=== PATIENT | female | born 1950 | race Caucasian/White ===

== ENCOUNTER 2024-05-09 07:34 | Day surgery (SDC) | payer OTHER ==
[2024-05-06 15:31] LABS: Absolute Basophils 0.1 K/uL (0-0.5); Absolute Eosinophils 0.2 K/uL (0-0.5); Absolute Lymphocytes (CBC) 1.5 K/uL (0.7-4.9); Absolute Monocytes 0.8 K/uL (0.1-1.3); Absolute Neutrophil 7.9 K/uL (1.8-8.0); Basophils % 0.6 % (0-1.3); Eosinophils % 1.5 % (0-4.4); Hematocrit 42.9 % (36.0-45.0); Hemoglobin 14.4 g/dL (12.0-15.0); Lymphocytes % 14.6 % (15.3-44.8); MCH 30.3 pg (27.0-35.0); MCHC 33.5 g/dL (32.0-36.0); MCV 90.5 fL (80-100); MPV 8.4 fL (7.6-11.3); Monocytes % 7.4 % (3.3-12.3); Neutrophils % 75.9 % (41.7-73.7); Nucleated Red Blood Cells % 0.1 % (0-0); Platelets 327 thou/uL (152-406); RBC Red Blood Cell Count 4.74 M/uL (3.86-4.86); Red Cell Distribution Width 14.4 % (12.1-15.2)
[2024-05-09] MEDS: Ringers Lactate 1,000 ML IV ONE (08:00)
[2024-05-09] MEDS ORDERED: propofoL 200 MG/20 ML VIAL IV ONE (08:23)
[2024-05-09] MEDS ORDERED: LIDOCAINE 1% MPF 5 ML VIAL ONE (08:23)
[2024-05-09 12:06] VITALS: TEMP 97.3
[2024-05-09 12:07] VITALS: BP 165/88; O2SAT 99
--- NOTE | 2024-05-09 17:07 | EKG ---
Test Date: 2024-05-06 Test Time: 15:02:03 Health Care Marketing Specialist: DOMINGA MEASUREMENT RESULTS: Intervals: Rate: 63 KS: 198 QRSD: 80 QT: 408 QTc: 417 [place]: P: 35 KS: 198 QRS: -41 T: 33 INTERPRETIVE STATEMENTS: Sinus rhythm with premature supraventricular complexes with occasional premature ventricular complexes Left axis deviation Anteroseptal infarct, age undetermined Abnormal ECG Compared to ECG 03/24/1996 11:02:00 Atrial premature complex(es) now present Ventricular premature complex(es) now present Left-axis deviation now present Myocardial infarct finding now present T-wave abnormality no longer present Electronically Signed On 05-09-24 16:59:35 CDT by Demarcus Romero
== END 2024-05-09 10:40 | disposition home or self-care (01) ==
LOC: OR 07:34
PROVIDERS: ATTEND Surgery
PROC: 0DBM8ZX Excision of Descending Colon, Via Natural or Artificial Opening Endoscopic, Diagnostic (ICD-10-PCS; principal; 2024-05-09 09:10)
DX: Z12.11 Encounter for screening for malignant neoplasm of colon (principal); Z86.010 Personal history of colon polyps; I10 Essential (primary) hypertension; E78.00 Pure hypercholesterolemia, unspecified; K57.30 Diverticulosis of large intestine without perforation or abscess without bleeding; K64.4 Residual hemorrhoidal skin tags; K64.8 Other hemorrhoids; D12.4 Benign neoplasm of descending colon
CPT/HCPCS: 93005; 85025; 80048; 36415; 88305; 45384; J2704; J2001; J7120

== ENCOUNTER 2024-05-19 21:50 | Emergency (ER) | payer OTHER ==
[2024-05-19] MEDS ORDERED: cloNIDine HCL 0.1 MG TAB ONE (22:27)
--- NOTE | 2024-05-19 22:46 | RAD REPORT ---
EXAM DESCRIPTION: RAD - Chest Single View - 05/19/2024 10:21 pm CLINICAL HISTORY: shortness of breath Chest pain. COMPARISON: No comparisons FINDINGS: Portable technique limits examination quality. The lungs are mildly emphysematous but grossly clear. The heart is mildly enlarged in size. No displa tyson fractures. IMPRESSION: No acute intrathoracic process suspected.
[2024-05-19 23:13] LABS: PT Prothrombin Time 11.2 SECONDS (9.4-12.5)
[2024-05-19 23:19] LABS: Absolute Eosinophils 0.2 K/uL (0-0.5); Absolute Lymphocytes (CBC) 1.1 K/uL (0.7-4.9); Basophils % 0.2 % (0-1.3); Eosinophils % 1.3 % (0-4.4); Hematocrit 40.2 % (36.0-45.0); Hemoglobin 13.1 g/dL (12.0-15.0); Lymphocytes % 9.9 % (15.3-44.8); MCH 30.2 pg (27.0-35.0); MCHC 32.7 g/dL (32.0-36.0); MCV 92.3 fL (80-100); Monocytes % 8.6 % (3.3-12.3); Platelets 313 thou/uL (152-406); RBC Red Blood Cell Count 4.36 M/uL (3.86-4.86); Red Cell Distribution Width 14.4 % (12.1-15.2)
[2024-05-19] MEDS ORDERED: dexAMETHasone 10 MG/ML VIAL ONE (23:45)
[2024-05-19] MEDS ORDERED: IPRATROPIUM BROM 0.5MG/2.5ML ONE (23:46)
[2024-05-19] MEDS ORDERED: ALBUTEROL 2.5 MG/3 ML NEB SOL ONE (23:46)
[2024-05-20 00:11] LABS: Albumin 3.5 g/dL (3.4-5.0); Albumin/Globulin Ratio 1.1 (1.1-1.8); Anion Gap 10.4 mEq/L (5.0-15.0); Bilirubin Direct 0.2 mg/dL (0-0.2); Bilirubin Indirect, Calculated 0.3 mg/dL (0.2-0.8); Bilirubin Total 0.5 mg/dL (0.2-1.0); Globulin 3.3 g/dL (2.3-3.5); Magnesium 1.9 mg/dL (1.6-2.4); Potassium 3.4 mEq/L (3.5-5.1); Protein, Total 6.8 g/dL (6.4-8.2); Troponin High Sensitivity 14.6 pg/mL (<58.9)
--- NOTE | 2024-05-20 00:30 | ER ---
Nurse's Notes [facility] Name: Analia Pennington Age: 73 yrs Sex: Female : 1950 Arrival Date: 05/19/2024 Time: 21:50 Bed 18 Private MD: Diagnosis: Hypertensive heart disease without heart failure;Postnasal drip Presentation: 05/19 22:00 Chief complaint: Patient states: "Ever since this morning, I started having trouble mb9 clearing my throat and feeling like its hoarse. I don't have SOB/CP.". Coronavirus screen: Vaccine status: Patient reports receiving the 2nd dose of the covid vaccine. Ebola Screen: No symptoms or risks identified at this time. Initial Sepsis Screen: Does the patient meet any 2 criteria? No. Patient's initial sepsis screen is negative. Does the patient have a suspected source of infection? No. Patient's initial sepsis screen is negative. Risk Assessment: Do you want to hurt yourself or someone else? Patient reports no desire to harm self or others. Onset of symptoms was May 19, 2024. 22:00 Acuity: MATY 2 mb9 22:00 Method Of Arrival: Ambulatory mb9 Triage Assessment: 22:03 General: Appears in no apparent distress. Behavior is calm, cooperative. Pain: Denies mb9 pain. EENT: Throat is clear. Neuro: Level of Consciousness is awake, alert, obeys commands, Oriented to person, place, time, situation, Appropriate for age. Cardiovascular: Denies chest pain, Patient's skin is warm and dry. Respiratory: Airway is patent Respiratory effort is even, unlabored, Respiratory pattern is regular, symmetrical. Respiratory:. Derm: Skin is pink, warm \\T\\ dry. Historical: - Allergies: 22:02 No Known Allergies; mb9 - Home Meds: 22:02 amlodipine oral [Active]; losartan oral [Active]; mb9 - PMHx: 22:02 Hypertensive disorder; mb9 - PSHx: 22:02 None; mb9 - Immunization history:: Adult Immunizations up to date. - Infectious Disease History:: Denies. - Social history:: Smoking status: Patient denies any tobacco usage or history of. Screenin:04 [facility] ED Fall Risk Assessment (Adult) History of falling in the last 3 months, mb9 including since admission No falls in past 3 months (0 pts) Confusion or Disorientation No (0 pts) Intoxicated or Sedated No (0 pts) Impaired Gait No (0 pts) Mobility Assist Device Used No (0 pt) Altered Elimination No (0 pt) Score/Fall Risk Level 0 - 2 = Low Risk Oriented to surroundings, Maintained a safe environment, Educated pt \\T\\ family on fall prevention, incl call for assistance when getting out of bed. Abuse screen: Denies threats or abuse. Nutritional screening: No deficits noted. Tuberculosis screening: No symptoms or risk factors identified. Assessment: 22:36 General: Appears in no apparent distress. Behavior is cooperative, anxious. Pain: tm6 Denies pain. Neuro: Level of Consciousness is awake, alert, obeys commands, Oriented to person, place, time, situation. Cardiovascular: Capillary refill < 3 seconds Patient's skin is warm and dry. Rhythm is regular. Respiratory: Airway is patent Respiratory effort is even, unlabored, Respiratory pattern is regular, symmetrical. GI: No signs and/or symptoms were reported involving the gastrointestinal system. Abdomen is round non-distended. : No signs and/or symptoms were reported regarding the genitourinary system. EENT: Reports feeling like something is stuck in throat. Derm: No signs and/or symptoms reported regarding the dermatologic system. Musculoskeletal: No signs and/or symptoms reported regarding the musculoskeletal system. 23:19 Reassessment: Patient appears in no apparent distress at this time. Patient and/or tm6 family updated on plan of care and expected duration. Pain level reassessed. Patient is alert, oriented x 3, equal unlabored respirations, skin warm/dry/pink. 05/20 00:14 Reassessment: Patient appears in no apparent distress at this time. Patient and/or tm6 family updated on plan of care and expected duration. Pain level reassessed. Patient is alert, oriented x 3, equal unlabored respirations, skin warm/dry/pink. Vital Signs: 05/19 22:00 BP 219 / 91; Pulse 88; Resp 18; Temp 98.6; Pulse Ox 100% on R/A; Weight 81.65 kg; mb9 Height 5 ft. 1 in. ; Pain 0/10; 22:36 BP 187 / 101; Pulse 62; Pulse Ox 96% on R/A; Pain 0/10; tm6 23:19 BP 178 / 86; Pulse 60; Pulse Ox 97% on R/A; tm6 16 00:14 BP 165 / 80; Pulse 56; Pulse Ox 95% on R/A; Pain 0/10; tm6 00:42 BP 165 / 80; Pulse 55; Resp 17; Temp 98.7; Pulse Ox 94% on R/A; Pain 0/10; tm6 05/19 22:00 Body Mass Index 34.01 (81.65 kg, 154.94 cm) mb9 05/19 22:00 Pain Scale: Adult mb9 22:36 Pain Scale: Adult tm6 05/20 00:14 Pain Scale: Adult tm6 00:42 Pain Scale: Adult tm6 ED Course: 05/19 21:54 Patient arrived in ED. ld1 21:56 Jeremy Reilly PA is PHCP. cp 21:56 Hayden Haines MD is Attending Physician. cp 22:00 Arm band placed on. mb9 22:02 Triage completed. mb9 22:15 EKG done, by ED staff, reviewed by Jeremy WALDRON. tm6 22:23 XRAY Chest (1 view) In Process Unspecified. EDMS 22:25 Tong Orta, RN is Primary Nurse. tm6 22:36 Patient has correct armband on for positive identification. Bed in low position. Call tm6 light in reach. Side rails up X 1. Provided Education on: use of call tracy. Client placed on continuous cardiac and pulse oximetry monitoring. NIBP monitoring applied. complaint investigations officer on. Pulse ox on. NIBP on. Door closed. Noise minimized. 22:55 Inserted saline lock: 20 gauge forearm, using aseptic technique. Blood collected. sa1 Flushed with 10 mL NS. 23:54 Strep Sent. tm6 05/20 00:28 Kartik Belle MD is Referral Physician. cp 00:42 No provider procedures requiring assistance completed. IV discontinued, intact, tm6 bleeding controlled, No redness/swelling at site. Pressure dressing applied. Administered Medications: 05/19 22:16 CANCELLED (Physician Discretion): nitroglycerin0.4 mg Sublingual once cp 22:38 Drug: cloNIDine PO 0.2 mg PO once Route: PO; tm6 23:04 Follow up: Response: No adverse reaction tm6 23:38 CANCELLED (Physician Discretion): [id number] mg IVP once cp 23:54 Drug: Decadron - Dexamethasone IVP 10 mg IVP once Route: IVP; Site: right antecubital; tm6 05/20 00:07 Follow up: Response: No adverse reaction tm6 05/19 23:54 Drug: Albuterol Inhalation 2.5 mg Inhalation once Route: Inhalation; tm6 05/20 00:07 Follow up: Response: No adverse reaction tm6 05/19 23:54 Drug: Ipratropium Inhalation Aerosol 0.5 mg Inhalation once Route: Inhalation; tm6 05/20 00:07 Follow up: Response: No adverse reaction tm6 00:42 Drug: Amoxicillin-Clavulanate PO 875 mg PO once Route: PO; tm6 00:43 Follow up: Response: No adverse reaction tm6 Medication: 05/19 22:04 VIS not applicable for this client. mb9 Outcome: 05/20 00:30 Discharge ordered by MD. cp 00:42 Discharged to home ambulatory, with friend, tm6 00:42 Condition: stable 00:42 Discharge instructions given to patient, friend, Instructed on discharge instructions, follow up and referral plans. medication usage, Demonstrated understanding of instructions, follow-up care, medications, Prescriptions given X 3, 00:43 Patient left the ED. tm6 Signatures: Dispatcher [employer] EDMS Jeremy Reilly PA PA cp Sims, Lauren RN RN ld1 Iris Daniel RN RN mb9 Tong Orta RN RN tm6 Sultan German [facility]
--- NOTE | 2024-05-20 00:31 | EDPHYS ---
Physician Documentation [facility] Name: Analia Pennington Age: 73 yrs Sex: Female : 1950 Arrival Date: 05/19/2024 Time: 21:50 Bed 18 Private MD: ED Physician Hayden Haines HPI: 05/19 22:10 This 73 yrs old Female presents to ER via Ambulatory with complaints of Difficulty cp Swallowing, Shortness Of Breath. 22:10 The patient presents with dysphagia, difficulty "clearing throat". The patient cp describes throat pain as denies pain. Onset: The symptoms/episode began/occurred this morning. Severity of symptoms: in the emergency department the symptoms are unchanged, despite home interventions. Historical: - Allergies: 22:02 No Known Allergies; mb9 - Home Meds: 22:02 amlodipine oral [Active]; losartan oral [Active]; mb9 - PMHx: 22:02 Hypertensive disorder; mb9 - PSHx: 22:02 None; mb9 - Immunization history:: Adult Immunizations up to date. - Infectious Disease History:: Denies. - Social history:: Smoking status: Patient denies any tobacco usage or history of. ROS: 22:15 Constitutional: Negative for body aches, chills, fever, poor PO intake, cp 22:15 ENT: Positive for difficulty swallowing, Negative for drainage from ear(s), ear pain, cp sore throat, difficulty handling secretions, 22:15 Cardiovascular: Negative for chest pain, palpitations, 22:15 Respiratory: Positive for shortness of breath, Negative for cough, wheezing, 22:15 Abdomen/GI: Negative for abdominal pain, vomiting, diarrhea, constipation, 22:15 Back: Negative for pain at rest, pain with movement, cp 22:15 Neuro: Negative for altered mental status, dizziness, headache, syncope, weakness, cp 22:15 All other systems are negative, Exam: 22:18 ECG was reviewed by the Attending Physician. cp 22:20 Constitutional: The patient appears in no acute distress, alert, awake, cp non-diaphoretic, non-toxic, well developed, well nourished, 22:20 Head/Face: Normocephalic, atraumatic. cp 22:20 Eyes: Periorbital structures: appear normal, Conjunctiva: normal, no exudate, no injection, Sclera: no appreciated abnormality, Lids and lashes: appear normal, bilaterally, 22:20 ENT: External ear(s): are unremarkable, Nose: is normal, Mouth: Lips: moist, Oral mucosa: pink and intact, moist, Posterior pharynx: Airway: no evidence of obstruction, patent, Tonsils: no enlargement, no exudate, swelling, is not appreciated, erythema, that is mild, exudate, is not appreciated, 22:20 Neck: ROM/movement: is normal, is supple, no meningismus, no nuchal rigidity, 22:20 Chest/axilla: Inspection: normal, 22:20 Cardiovascular: Rate: normal, Rhythm: regular, Edema: is not appreciated, JVD: is not appreciated, 22:20 Respiratory: the patient does not display signs of respiratory distress, Respirations: normal, no use of accessory muscles, no retractions, labored breathing, is not present, Breath sounds: are clear throughout, no decreased breath sounds, no stridor, no wheezing, 22:20 Abdomen/GI: Inspection: obese Palpation: abdomen is soft and non-tender, in all quadrants, 22:20 Back: pain, is absent, ROM is normal, 22:20 Neuro: Orientation: to person, place \\T\\ time. Mentation: is normal, Motor: moves all fours, strength is normal, Sensation: is normal, Vital Signs: 22:00 BP 219 / 91; Pulse 88; Resp 18; Temp 98.6; Pulse Ox 100% on R/A; Weight 81.65 kg; mb9 Height 5 ft. 1 in. ; Pain 0/10; 22:36 BP 187 / 101; Pulse 62; Pulse Ox 96% on R/A; Pain 0/10; tm6 23:19 BP 178 / 86; Pulse 60; Pulse Ox 97% on R/A; tm6 0816 00:14 BP 165 / 80; Pulse 56; Pulse Ox 95% on R/A; Pain 0/10; tm6 00:42 BP 165 / 80; Pulse 55; Resp 17; Temp 98.7; Pulse Ox 94% on R/A; Pain 0/10; tm6 05/19 22:00 Body Mass Index 34.01 (81.65 kg, 154.94 cm) [facility] 05/19 22:00 Pain Scale: Adult mb9 22:36 Pain Scale: Adult tm6 05/20 00:14 Pain Scale: Adult tm6 00:42 Pain Scale: Adult tm6 MDM: 05/19 21:56 Patient medically screened. 05/20 00:27 Data reviewed: vital signs, nurses notes, lab test result(s), EKG, radiologic studies, cp plain films. ED course: Patient reports nasal drainage and reports in the past with similar symptoms she is prescribed Amoxicillin that improves her symptoms. 00:27 Differential diagnosis: group A strep tonsillitis, laryngitis, pharyngitis, cp retropharyngeal abcess acute ID, angina, AAA. 00:27 I considered the following discharge prescriptions or medication management in the emergency department Medications were administered in the Emergency Department. See MAR. Independent interpretation of the following test(s) in the Emergency Department EKG: See my EKG interpretation above. Test considered but Not performed: CT: neck and chest. Care significantly affected by the following chronic conditions: Hypertension, Obesity. Refusal of service: The patient/guardian displays adequate decision making capability and despite a detailed discussion of alternatives, benefits, risks, and consequences refuses: CT Scan. 05/19 22:07 Order name: Basic Metabolic Panel; Complete Time: 00:11 05/20 00:11 Interpretation: Normal except: K 3.4; GLUC 157; BUN 24; CRE 1.08; GFR 55. 05/19 22:07 Order name: CBC with Diff; Complete Time: 23:37 05/19 23:38 Interpretation: Normal except: WBC 11.30; CHELY% 80.0; LYM% 9.9; NEUT A 9.0. 05/19 22:07 Order name: LFT's; Complete Time: 00:11 05/19 22:07 Order name: Magnesium; Complete Time: 00:11 05/19 22:07 Order name: NT PRO-BNP; Complete Time: 00:11 05/19 22:07 Order name: PT-INR; Complete Time: 23:37 05/19 22:07 Order name: Troponin HS; Complete Time: 00:11 05/20 00:12 Interpretation: Reviewed. 05/19 23:38 Order name: Strep; Complete Time: 00:11 05/20 00:13 Order name: Throat Culture EDMA 05/19 22:07 Order name: XRAY Chest (1 view); Complete Time: 23:37 cp 08/ 23:37 Interpretation: Report review. cp 05/19 22:07 Order name: Cardiac monitoring; Complete Time: 22:38 cp 05/19 22:07 Order name: EKG - Nurse/Tech; Complete Time: 22:38 cp 05/19 22:07 Order name: IV Saline Lock; Complete Time: 22:59 cp 05/19 22:07 Order name: Labs collected and sent; Complete Time: 22:59 cp 05/19 22:07 Order name: O2 Per Protocol; Complete Time: 22:38 cp 08 22:07 Order name: O2 Sat Monitoring; Complete Time: 22:38 cp EC/15 22:18 Rate is 63 beats/min. Rhythm is regular. ME interval is normal. QRS interval is normal. cp QT interval is normal. T waves are Inverted in lead aVR. Interpreted by me. Reviewed by me. Administered Medications: 22:16 CANCELLED (Physician Discretion): nitroglycerin0.4 mg Sublingual once cp 22:38 Drug: cloNIDine PO 0.2 mg PO once Route: PO; tm6 23:04 Follow up: Response: No adverse reaction tm6 23:38 CANCELLED (Physician Discretion): [id number] mg IVP once cp 23:54 Drug: Decadron - Dexamethasone IVP 10 mg IVP once Route: IVP; Site: right antecubital; tm6 05/20 00:07 Follow up: Response: No adverse reaction tm6 05/19 23:54 Drug: Albuterol Inhalation 2.5 mg Inhalation once Route: Inhalation; tm6 05/20 00:07 Follow up: Response: No adverse reaction tm6 05/19 23:54 Drug: Ipratropium Inhalation Aerosol 0.5 mg Inhalation once Route: Inhalation; tm6 05/20 00:07 Follow up: Response: No adverse reaction tm6 00:42 Drug: Amoxicillin-Clavulanate PO 875 mg PO once Route: PO; tm6 00:43 Follow up: Response: No adverse reaction tm6 Disposition: 03:06 Co-signature as Attending Physician, Hayden Haines MD I agree with the assessment sp4 and plan of care. I reviewed the patient's care provided by the Advanced Practice Provider and agree with the diagnosis and treatment plan. Disposition Summary: 05/20/24 00:30 Discharge Ordered Notes: Location: Home cp Problem: new cp Symptoms: have improved cp Condition: Stable cp Diagnosis - Hypertensive heart disease without heart failure cp - Postnasal drip cp Followup: cp - With: Kartik Belle MD - When: 5 - 6 days - Reason: elevated blood pressure Discharge Instructions: - Discharge Summary Sheet cp - Hypertension, Adult cp - Aspirin and Your Heart cp - Form - Blood Pressure Record Sheet cp - How to Take Your Blood Pressure cp - Postnasal Drip cp Forms: - Medication Reconciliation Form cp - Antibiotic Education cp - Prescription Opioid Use cp - Patient Portal Instructions cp - Leadership Thank You Letter cp Prescriptions: - albuterol sulfate 90 mcg/actuation Inhalation HFA Aerosol Inhaler - inhale 1 inhalation INHALATION route every 6 hours as needed for shortness of cp breath; 1 unit; Refills: 0, Product Selection Permitted - clonidine HCl 0.1 mg Oral tablet - take 1 tablet ORAL route one time As needed as needed for hypertensive cp emergency; for systolic blood pressure above 180; 20 tablet; Refills: 0, Product Selection Permitted - Amoxicillin 875 mg Oral Tablet - take 1 tablet ORAL route every 12 hours for 10 days; 20 tablet; Refills: 0, cp Product Selection Permitted Signatures: Dispatcher [employer] EDMS Jeremy Reilly PA PA cp Wilkerson, Mary Beth, RN RN mb9 Hayden Haines MD MD sp4 Tong Orta RN RN tm6 Corrections: (The following items were deleted from the chart) 05/19 22:07 22:07 BASIC METABOLIC PANEL+C.LAB.BRZ ordered. EDMS EDMS 22:07 22:07 CBC+H.LAB.BRZ ordered. EDMS EDMS 22:07 22:07 HEPATIC FUNCTION+C.LAB.BRZ ordered. EDMS EDMS 22: 22:07 MAGNESIUM+C.LAB.BRZ ordered. EDMS EDMS 22:07 22:07 PROBNP+C.LAB.BRZ ordered. EDMS EDMS 22:07 22:07 PROTIME (+INR)+COAG.LAB.BRZ ordered. EDMS EDMS 22:07 22:07 Troponin High Sensitivity+C.LAB.BRZ ordered. EDMS EDMS 22:07 22:07 Urinalysis+U.LAB.BRZ ordered. EDMS EDMS : 22:08 Chest Single View+RAD.RAD.BRZ ordered. EDMS EDMS : 22:15 Nitroglycerin Sublingual 0.4 mg Sublingual once ordered. cp cp 23:38 23:37 MethylPrednisoLONE IVP 125 mg IVP once ordered. cp cp 23:39 23:39 Group A Streptococcus Rapid Sc+BA.LAB.BRZ ordered. EDMS EDMS 05/20 00:32 05/19 23:54 Soft Tissue Neck W/Contr+CT.RAD.BRZ ordered. EDMS EDMS 05/20 00:32 05/19 23:54 Thorax W/ Con+CT.RAD.BRZ ordered. EDMS EDMS
[2024-05-20] MEDS ORDERED: AMOX/K CLAV 875 MG TAB ONE (00:33)
[2024-05-20 00:52] VITALS: BP 165/80
[2024-05-20 00:54] VITALS: TEMP 98.7; O2SAT 94
== END 2024-05-20 00:43 | disposition home or self-care (01) ==
LOC: ER 21:50
DX: I11.9 Hypertensive heart disease without heart failure (principal); R09.82 Postnasal drip; R06.02 Shortness of breath; I10 Essential (primary) hypertension
CPT/HCPCS: 87070; 85025; 80048; 36415; 83735; 85610; 80076; 87081; 84484; 83880; 71045; 96374; 99285; J7613; J7644; J1100